=== PATIENT | female | born 1965 | race Two or more races ===

== ENCOUNTER → 2019-07-09 | Outpatient (CLI) | payer OTHER | END | disposition home or self-care (01) | LOC: RAD 15:40 | DX: M06.4 Inflammatory polyarthropathy (principal); M06.88 Other specified rheumatoid arthritis, vertebrae; M15.0 Primary generalized (osteo)arthritis; M79.7 Fibromyalgia; M50.11 Cervical disc disorder with radiculopathy, high cervical region ==